=== PATIENT | female | born 1940 | race Caucasian/White ===

== ENCOUNTER 2020-12-01 21:01 | Inpatient (IN) | payer MEDICARE, BC ==
[~2020-12-01] VITALS: Ht 170.2 cm; Wt 104.8 kg
[2020-12-01] MEDS ORDERED: BRIM5DRO3 RIGHTEYE (21:27)
[2020-12-01] MEDS ORDERED: FERR325T27 PO (21:27)
[2020-12-01] MEDS ORDERED: ASCO500C18 PO (21:27)
[2020-12-01] MEDS ORDERED: PANT40TA2 PO (21:27)
[2020-12-01] MEDS ORDERED: CARV3.122 PO (21:27)
[2020-12-01] MEDS ORDERED: ATOR40TA PO (21:27)
[2020-12-01] MEDS ORDERED: TIMO5DRO18 EACHEYE (21:27)
[2020-12-01] MEDS ORDERED: LEVO125T PO (21:27)
[2020-12-01] MEDS ORDERED: VIT1CAPS9 PO (21:27)
[2020-12-01] MEDS ORDERED: MELA3TAB41 PO (21:27)
[2020-12-01] MEDS ORDERED: FURO-151 PO (21:27)
[2020-12-01] MEDS ORDERED: POTA10CA43 PO (21:27)
[2020-12-01] MEDS ORDERED: FLUT16SP16 NS (21:27)
[2020-12-01] MEDS ORDERED: DOCU-141 PO (21:27)
[2020-12-01] MEDS ORDERED: QUET25TA PO (21:27)
[2020-12-01] MEDS ORDERED: HALOPERIDOL LACTATE 5 MG/1 ML VIAL IM ONE (21:30)
[2020-12-01] MEDS ORDERED: HALOPERIDOL LACTATE 5 MG/1 ML VIAL ONE (21:41)
[2020-12-01] MEDS ORDERED: LORAZEPAM 2 MG/1 ML VIAL IM ONE (22:30)
[2020-12-01] MEDS ORDERED: LORAZEPAM 2 MG/1 ML VIAL ONE (22:31)
[2020-12-01 23:13] LABS: BASOPHILS # (AUTO) 0.1 K/uL (0.0-8.0); BASOPHILS % (AUTO) 1.1 % (0.0-2.0); EOSINOPHILS # (AUTO) 0.7 K/uL (0.0-0.7); EOSINOPHILS % (AUTO) 9.3 % (0.0-7.0); HEMATOCRIT 33.9 % (31.2-41.9); LYMPHOCYTES # (AUTO) 1.3 K/uL (20.0-40.0); LYMPHOCYTES % (AUTO) 16.7 % (20.5-51.5); MEAN CORPUSCULAR HEMOGLOBIN 29.6 uug (24.7-32.8); MEAN CORPUSCULAR HGB CONC 32 g/dL (32.3-35.6); MEAN CORPUSCULAR VOLUME 91.3 fL (75.5-95.3); MONOCYTES # (AUTO) 0.8 K/uL (2.0-10.0); MONOCYTES % (AUTO) 10.5 % (0.0-11.0); NEUTROPHILS % (AUTO) 62.4 % (38.5-71.5); PLATELET COUNT (AUTO) 241 K/uL (179-408); RED BLOOD CELL COUNT(AUTO) 3.71 MIL/uL (3.63-4.92)
[2020-12-01 23:19] LABS: CARBON DIOXIDE 27 mmol/L (21-32); CHLORIDE 105 mmol/L (98-107); CREATININE 0.9 mg/dL (0.6-1.3); GLUCOSE 137 mg/dL (74-106); POTASSIUM 4.3 mmol/L (3.5-5.1); UREA NITROGEN, BLOOD 27 mg/dL (7-18)
[2020-12-01 23:21] LABS: ETHANOL < 3 MG/DL (0-0)
[2020-12-01 23:23] LABS: *BILIRUBIN,URIN NEGATIVE (NEGATIVE); *BLOOD, URINE NEGATIVE (NEGATIVE); *CLARITY,URINE CLEAR (CLEAR); *COLOR,URINE YELLOW (YELLOW); *KETONES,URINE NEGATIVE (NEGATIVE); *UROBILINOGEN,URINE 0.2 E.U./dl (NORMAL); LEUKOCYTE ESTERASE ,URINE NEGATIVE (NEGATIVE); NITRITE, URINE NEGATIVE (NEGATIVE); UGLUCOSE NEGATIVE (NEGATIVE)
[2020-12-01 23:28] LABS: *AMPHETAMINE, URINE NEGATIVE (NEGATIVE); *CANNABINOID, URINE NEGATIVE (NEGATIVE); *COCCAINE, URINE NEGATIVE (NEGATIVE); *OPIATE, URINE NEGATIVE (NEGATIVE); *PHENCYCLIDINE SCREEN,URINE NEGATIVE (NEGATIVE)
[2020-12-01 23:35] LABS: ALANINE AMINOTRANSFERASE 13 U/L (14-59); ALKALINE PHOSPHATASE 95 U/L (50-136); ASPARTATE AMINOTRANSFERASE 20 U/L (15-37); BILIRUBIN,DIRECT 0.1 mg/dL (0.0-0.2); BILIRUBIN,TOTAL 0.4 mg/dL (0.2-1.0); CREATINE KINASE, TOTAL 54 U/L (26-192); TOTAL PROTEIN, SERUM 7.7 g/dL (6.4-8.2)
[2020-12-01 23:37] LABS: ACETAMINOPHEN < 2.0 ug/mL (10-30)
[2020-12-01 23:38] LABS: THYROID STIMULATING HORMONE 18.342 mIU/mL (0.358-3.740)
[2020-12-02] MEDS ORDERED: KETAMINE HCL 500 MG/10 ML INJ IV ONE
[2020-12-02] MEDS ORDERED: BENZONATATE 100 MG CAPSULE PO ONE (01:15)
[2020-12-02] MEDS ORDERED: BENZONATATE 100 MG CAPSULE ONE (01:21)
[2020-12-02] MEDS ORDERED: ACETAMINOPHEN ES 500 MG TABLET PO ONE (02:15)
[2020-12-02] MEDS ORDERED: ACETAMINOPHEN ES 500 MG TABLET ONE (02:18)
[2020-12-02 08:00] VITALS: BP 128/50
[2020-12-02] MEDS ORDERED: MAG HYDROX/AL HYDROX/SIMETH 30 ML LIQUID UDC PO PRN (08:15)
[2020-12-02] MEDS ORDERED: ACETAMINOPHEN 325 MG TABLET PO PRN (08:15)
[2020-12-02] MEDS ORDERED: MAGNESIUM HYDROXIDE 30 ML LIQUID UDC PO PRN (08:15)
[2020-12-02] MEDS: FLUTICASONE PROP NASAL SPRAY 16 GM BOTTLE NS SCH (13:22)
[2020-12-02] MEDS: BRIMONIDINE 0.2% OPHT DROP 10 ML BOTTLE RIGHTEYE SCH ×2 (13:23→21:59)
[2020-12-02] MEDS: TIMOLOL MALEATE 0.5% OPHT DROP 5 ML BOTTLE EACHEYE SCH ×2 (13:23→21:13)
[2020-12-02] MEDS ORDERED: BRIMONIDINE-P 0.1% OPHTH DROP 5 ML DROPS RIGHTEYE SCH (14:00)
[2020-12-02 15:41] VITALS: BP 148/65
[2020-12-02] MEDS: QUETIAPINE FUMARATE 25 MG TABLET PO SCH ×2 (17:10→20:38)
[2020-12-02] MEDS: FERROUS SULFATE 325 MG TABEC PO SCH (17:10)
[2020-12-02] MEDS: CARVEDILOL 3.125 MG TABLET PO SCH ×2 (17:11→18:00)
[2020-12-02] MEDS: CLONAZEPAM 0.5 MG TABLET PO PRN (19:59)
[2020-12-02 20:17] VITALS: BP 136/62
[2020-12-02] MEDS: ATORVASTATIN 40 MG TABLET PO SCH (20:38)
[2020-12-02] MEDS: TEMAZEPAM 7.5 MG CAPSULE PO PRN (22:40)
[2020-12-02] MEDS ORDERED: LORAZEPAM 2 MG/1 ML VIAL IM ONE (23:15)
[2020-12-02] MEDS ORDERED: OLANZAPINE 10 MG VIAL IM ONE (23:15)
[2020-12-03] MEDS: PANTOPRAZOLE SODIUM 40 MG TABLET.DR PO SCH (06:45)
[2020-12-03] MEDS: LEVOTHYROXINE SODIUM 125 MCG TABLET PO SCH (06:45)
[2020-12-03] MEDS: BRIMONIDINE 0.2% OPHT DROP 10 ML BOTTLE RIGHTEYE SCH ×3 (06:45→21:01)
[2020-12-03 07:30] VITALS: BP 117/61
[2020-12-03] MEDS: CARVEDILOL 3.125 MG TABLET PO SCH ×2 (08:00→17:12)
[2020-12-03] MEDS: FUROSEMIDE 40 MG TABLET PO SCH (08:50)
[2020-12-03] MEDS: ASCORBIC ACID 500 MG TABLET PO SCH (08:50)
[2020-12-03] MEDS: BETA CAROTENE/VIT C & E/MIN TABLET PO SCH (08:50)
[2020-12-03] MEDS: DOCUSATE SODIUM 100 MG CAPSULE PO SCH (08:50)
[2020-12-03] MEDS: QUETIAPINE FUMARATE 25 MG TABLET PO SCH ×2 (08:50→20:54)
[2020-12-03] MEDS: POTASSIUM CHLORIDE 10 MEQ TAB.PRT.SR PO SCH (08:50)
[2020-12-03] MEDS: FERROUS SULFATE 325 MG TABEC PO SCH ×2 (08:50→16:10)
[2020-12-03] MEDS: Z GUARD REMEDY PASTE 57 GM TUBE TOP SCH ×2 (08:51→20:57)
[2020-12-03] MEDS: FLUTICASONE PROP NASAL SPRAY 16 GM BOTTLE NS SCH (08:55)
[2020-12-03] MEDS: TIMOLOL MALEATE 0.5% OPHT DROP 5 ML BOTTLE EACHEYE SCH ×2 (08:56→20:54)
[2020-12-03] MEDS ORDERED: Medication Not On Formulary EA (Ascorbic Acid (Vitamin C) 500 MG) PO SCH (09:00)
[2020-12-03] MEDS ORDERED: Medication Not On Formulary EA (Vit A/Vit C/Vit E/Zinc/Copper (Preservision Areds Softge PO SCH (09:00)
[2020-12-03] MEDS: MINERAL OIL/PETROLATUM,WHITE 57 GM TUBE TOP SCH (13:20)
[2020-12-03 15:56] VITALS: BP 137/64
[2020-12-03] MEDS: CLOTRIMAZOLE 1% CREAM 30 GM TUBE TOP SCH (16:10)
[2020-12-03] MEDS: ATORVASTATIN 40 MG TABLET PO SCH (20:54)
[2020-12-03 21:16] VITALS: BP 124/67
[2020-12-04] MEDS: BRIMONIDINE 0.2% OPHT DROP 10 ML BOTTLE RIGHTEYE SCH ×3 (06:18→21:02)
[2020-12-04] MEDS: LEVOTHYROXINE SODIUM 125 MCG TABLET PO SCH (06:18)
[2020-12-04] MEDS: PANTOPRAZOLE SODIUM 40 MG TABLET.DR PO SCH (06:18)
[2020-12-04 07:30] VITALS: BP 90/51
[2020-12-04] MEDS: POTASSIUM CHLORIDE 10 MEQ TAB.PRT.SR PO SCH (08:46)
[2020-12-04] MEDS: BETA CAROTENE/VIT C & E/MIN TABLET PO SCH (08:46)
[2020-12-04] MEDS: QUETIAPINE FUMARATE 25 MG TABLET PO SCH ×2 (08:46→20:57)
[2020-12-04] MEDS: DOCUSATE SODIUM 100 MG CAPSULE PO SCH (08:46)
[2020-12-04] MEDS: FERROUS SULFATE 325 MG TABEC PO SCH ×2 (08:46→16:16)
[2020-12-04] MEDS: ASCORBIC ACID 500 MG TABLET PO SCH (08:46)
[2020-12-04] MEDS: MINERAL OIL/PETROLATUM,WHITE 57 GM TUBE TOP SCH (08:47)
[2020-12-04] MEDS: CARVEDILOL 3.125 MG TABLET PO SCH ×2 (08:47→16:16)
[2020-12-04] MEDS: Z GUARD REMEDY PASTE 57 GM TUBE TOP SCH ×2 (08:47→21:00)
[2020-12-04] MEDS: FUROSEMIDE 40 MG TABLET PO SCH (08:47)
[2020-12-04] MEDS: CLOTRIMAZOLE 1% CREAM 30 GM TUBE TOP SCH ×2 (08:47→16:16)
[2020-12-04] MEDS: FLUTICASONE PROP NASAL SPRAY 16 GM BOTTLE NS SCH (08:48)
[2020-12-04] MEDS: TIMOLOL MALEATE 0.5% OPHT DROP 5 ML BOTTLE EACHEYE SCH ×2 (08:48→21:00)
[2020-12-04 16:52] VITALS: BP 90/49
[2020-12-04 20:16] VITALS: BP 92/56
[2020-12-04] MEDS: ATORVASTATIN 40 MG TABLET PO SCH (20:57)
[2020-12-05] MEDS: LEVOTHYROXINE SODIUM 125 MCG TABLET PO SCH (06:01)
[2020-12-05] MEDS: BRIMONIDINE 0.2% OPHT DROP 10 ML BOTTLE RIGHTEYE SCH ×3 (06:01→21:51)
[2020-12-05] MEDS: PANTOPRAZOLE SODIUM 40 MG TABLET.DR PO SCH (06:01)
[2020-12-05 07:30] VITALS: BP 121/67
[2020-12-05] MEDS: CARVEDILOL 3.125 MG TABLET PO SCH ×2 (08:05→17:02)
[2020-12-05] MEDS: BETA CAROTENE/VIT C & E/MIN TABLET PO SCH (08:06)
[2020-12-05] MEDS: DOCUSATE SODIUM 100 MG CAPSULE PO SCH (08:06)
[2020-12-05] MEDS: FLUTICASONE PROP NASAL SPRAY 16 GM BOTTLE NS SCH (08:06)
[2020-12-05] MEDS: FUROSEMIDE 40 MG TABLET PO SCH (08:06)
[2020-12-05] MEDS: TIMOLOL MALEATE 0.5% OPHT DROP 5 ML BOTTLE EACHEYE SCH ×2 (08:06→20:53)
[2020-12-05] MEDS: POTASSIUM CHLORIDE 10 MEQ TAB.PRT.SR PO SCH (08:06)
[2020-12-05] MEDS: FERROUS SULFATE 325 MG TABEC PO SCH ×2 (08:06→16:48)
[2020-12-05] MEDS: QUETIAPINE FUMARATE 25 MG TABLET PO SCH ×2 (08:07→20:52)
[2020-12-05] MEDS: ASCORBIC ACID 500 MG TABLET PO SCH (08:07)
[2020-12-05] MEDS: Z GUARD REMEDY PASTE 57 GM TUBE TOP SCH ×2 (08:08→20:53)
[2020-12-05] MEDS: MINERAL OIL/PETROLATUM,WHITE 57 GM TUBE TOP SCH (08:08)
[2020-12-05] MEDS: CLOTRIMAZOLE 1% CREAM 30 GM TUBE TOP SCH ×2 (08:08→17:01)
[2020-12-05 15:57] VITALS: BP_SYST 127; BP_SYST 135; BP_DIAS 72; BP_DIAS 73
[2020-12-05] MEDS: ENSURE ENLIVE (VAN) 240 ML LIQUID PO SCH (17:00)
[2020-12-05 20:17] VITALS: BP 103/50
[2020-12-05] MEDS: ATORVASTATIN 40 MG TABLET PO SCH (20:52)
[2020-12-05] MEDS: TEMAZEPAM 7.5 MG CAPSULE PO PRN (21:50)
[2020-12-06] MEDS: PANTOPRAZOLE SODIUM 40 MG TABLET.DR PO SCH (06:05)
[2020-12-06] MEDS: LEVOTHYROXINE SODIUM 125 MCG TABLET PO SCH (06:05)
[2020-12-06] MEDS: BRIMONIDINE 0.2% OPHT DROP 10 ML BOTTLE RIGHTEYE SCH ×3 (06:05→20:26)
[2020-12-06 07:30] VITALS: BP 97/42
[2020-12-06] MEDS: CARVEDILOL 3.125 MG TABLET PO SCH ×2 (08:00→17:04)
[2020-12-06] MEDS: DOCUSATE SODIUM 100 MG CAPSULE PO SCH (09:20)
[2020-12-06] MEDS: BETA CAROTENE/VIT C & E/MIN TABLET PO SCH (09:20)
[2020-12-06] MEDS: FUROSEMIDE 40 MG TABLET PO SCH (09:20)
[2020-12-06] MEDS: ASCORBIC ACID 500 MG TABLET PO SCH (09:20)
[2020-12-06] MEDS: ASPIRIN 81 MG TAB.CHEW PO SCH (09:20)
[2020-12-06] MEDS: QUETIAPINE FUMARATE 25 MG TABLET PO SCH ×2 (09:20→20:26)
[2020-12-06] MEDS: POTASSIUM CHLORIDE 10 MEQ TAB.PRT.SR PO SCH (09:20)
[2020-12-06] MEDS: CLONAZEPAM 0.5 MG TABLET PO PRN (09:20)
[2020-12-06] MEDS: FERROUS SULFATE 325 MG TABEC PO SCH ×2 (09:20→16:52)
[2020-12-06] MEDS: TIMOLOL MALEATE 0.5% OPHT DROP 5 ML BOTTLE EACHEYE SCH ×2 (09:22→20:27)
[2020-12-06] MEDS: FLUTICASONE PROP NASAL SPRAY 16 GM BOTTLE NS SCH (09:22)
[2020-12-06] MEDS: ENSURE ENLIVE (VAN) 240 ML LIQUID PO SCH ×2 (09:23→16:54)
[2020-12-06] MEDS: MINERAL OIL/PETROLATUM,WHITE 57 GM TUBE TOP SCH (09:24)
[2020-12-06] MEDS: CLOTRIMAZOLE 1% CREAM 30 GM TUBE TOP SCH ×2 (09:24→16:53)
[2020-12-06] MEDS: Z GUARD REMEDY PASTE 57 GM TUBE TOP SCH ×2 (09:24→20:26)
[2020-12-06 15:01] VITALS: BP 121/61
[2020-12-06 20:14] VITALS: BP 112/60
[2020-12-06] MEDS: ATORVASTATIN 40 MG TABLET PO SCH (20:27)
[2020-12-06] MEDS: HEPARIN SODIUM,PORCINE 5,000 UNITS/ML VIAL SQ SCH (20:28)
[2020-12-07] MEDS: TEMAZEPAM 7.5 MG CAPSULE PO PRN ×2 (00:27→23:11)
[2020-12-07] MEDS: CLONAZEPAM 0.5 MG TABLET PO PRN ×3 (01:27→20:15)
[2020-12-07] MEDS: LEVOTHYROXINE SODIUM 137 MCG TABLET PO SCH (06:17)
[2020-12-07] MEDS: PANTOPRAZOLE SODIUM 40 MG TABLET.DR PO SCH (06:17)
[2020-12-07] MEDS: BRIMONIDINE 0.2% OPHT DROP 10 ML BOTTLE RIGHTEYE SCH ×3 (06:17→20:18)
[2020-12-07 07:30] VITALS: BP 126/61
[2020-12-07] MEDS: CARVEDILOL 3.125 MG TABLET PO SCH ×2 (08:48→17:32)
[2020-12-07] MEDS: FERROUS SULFATE 325 MG TABEC PO SCH ×2 (08:48→16:26)
[2020-12-07] MEDS: ASCORBIC ACID 500 MG TABLET PO SCH (08:48)
[2020-12-07] MEDS: QUETIAPINE FUMARATE 25 MG TABLET PO SCH ×2 (08:48→20:15)
[2020-12-07] MEDS: BETA CAROTENE/VIT C & E/MIN TABLET PO SCH (08:48)
[2020-12-07] MEDS: DOCUSATE SODIUM 100 MG CAPSULE PO SCH (08:48)
[2020-12-07] MEDS: ASPIRIN 81 MG TAB.CHEW PO SCH (08:48)
[2020-12-07] MEDS: POTASSIUM CHLORIDE 10 MEQ TAB.PRT.SR PO SCH (08:48)
[2020-12-07] MEDS: HEPARIN SODIUM,PORCINE 5,000 UNITS/ML VIAL SQ SCH ×2 (08:49→20:16)
[2020-12-07] MEDS: TIMOLOL MALEATE 0.5% OPHT DROP 5 ML BOTTLE EACHEYE SCH ×2 (08:50→20:19)
[2020-12-07] MEDS: ENSURE ENLIVE (VAN) 240 ML LIQUID PO SCH ×2 (08:50→16:27)
[2020-12-07] MEDS: FLUTICASONE PROP NASAL SPRAY 16 GM BOTTLE NS SCH (08:51)
[2020-12-07] MEDS: FUROSEMIDE 40 MG TABLET PO SCH (08:54)
[2020-12-07] MEDS: MINERAL OIL/PETROLATUM,WHITE 57 GM TUBE TOP SCH (08:54)
[2020-12-07] MEDS: Z GUARD REMEDY PASTE 57 GM TUBE TOP SCH ×2 (08:55→20:19)
[2020-12-07] MEDS: CLOTRIMAZOLE 1% CREAM 30 GM TUBE TOP SCH ×2 (08:55→16:27)
[2020-12-07 15:30] VITALS: BP 129/71
[2020-12-07 20:05] VITALS: BP 136/74
[2020-12-07] MEDS: ATORVASTATIN 40 MG TABLET PO SCH (20:15)
[2020-12-08] MEDS: LEVOTHYROXINE SODIUM 137 MCG TABLET PO SCH (06:09)
[2020-12-08] MEDS: BRIMONIDINE 0.2% OPHT DROP 10 ML BOTTLE RIGHTEYE SCH ×3 (06:09→21:39)
[2020-12-08] MEDS: PANTOPRAZOLE SODIUM 40 MG TABLET.DR PO SCH (06:09)
[2020-12-08 07:30] VITALS: BP 133/69
[2020-12-08] MEDS: ASPIRIN 81 MG TAB.CHEW PO SCH (08:56)
[2020-12-08] MEDS: BETA CAROTENE/VIT C & E/MIN TABLET PO SCH (08:57)
[2020-12-08] MEDS: FUROSEMIDE 40 MG TABLET PO SCH (08:57)
[2020-12-08] MEDS: DOCUSATE SODIUM 100 MG CAPSULE PO SCH (08:57)
[2020-12-08] MEDS: POTASSIUM CHLORIDE 10 MEQ TAB.PRT.SR PO SCH (08:57)
[2020-12-08] MEDS: FERROUS SULFATE 325 MG TABEC PO SCH ×2 (08:57→17:25)
[2020-12-08] MEDS: ASCORBIC ACID 500 MG TABLET PO SCH (08:57)
[2020-12-08] MEDS: QUETIAPINE FUMARATE 25 MG TABLET PO SCH ×2 (08:57→20:44)
[2020-12-08] MEDS: CARVEDILOL 3.125 MG TABLET PO SCH ×2 (08:58→17:24)
[2020-12-08] MEDS: ENSURE ENLIVE (VAN) 240 ML LIQUID PO SCH ×2 (08:59→17:25)
[2020-12-08] MEDS: HEPARIN SODIUM,PORCINE 5,000 UNITS/ML VIAL SQ SCH ×2 (08:59→20:48)
[2020-12-08] MEDS: FLUTICASONE PROP NASAL SPRAY 16 GM BOTTLE NS SCH (09:00)
[2020-12-08] MEDS: TIMOLOL MALEATE 0.5% OPHT DROP 5 ML BOTTLE EACHEYE SCH ×2 (09:00→20:44)
[2020-12-08] MEDS: MINERAL OIL/PETROLATUM,WHITE 57 GM TUBE TOP SCH (09:01)
[2020-12-08] MEDS: CLOTRIMAZOLE 1% CREAM 30 GM TUBE TOP SCH ×2 (09:01→17:25)
[2020-12-08] MEDS: Z GUARD REMEDY PASTE 57 GM TUBE TOP SCH ×2 (09:25→20:44)
[2020-12-08 16:00] VITALS: BP 140/70
[2020-12-08 20:22] VITALS: BP 136/68
[2020-12-08] MEDS: ATORVASTATIN 40 MG TABLET PO SCH (20:44)
[2020-12-08] MEDS: TEMAZEPAM 7.5 MG CAPSULE PO PRN (22:38)
[2020-12-09] MEDS: CLONAZEPAM 0.5 MG TABLET PO PRN ×2 (02:16→19:54)
[2020-12-09] MEDS: BRIMONIDINE 0.2% OPHT DROP 10 ML BOTTLE RIGHTEYE SCH ×3 (05:52→21:40)
[2020-12-09] MEDS: LEVOTHYROXINE SODIUM 137 MCG TABLET PO SCH (06:01)
[2020-12-09] MEDS: PANTOPRAZOLE SODIUM 40 MG TABLET.DR PO SCH (06:01)
[2020-12-09 07:30] VITALS: BP 122/54
[2020-12-09] MEDS: DOCUSATE SODIUM 100 MG CAPSULE PO SCH (08:38)
[2020-12-09] MEDS: QUETIAPINE FUMARATE 25 MG TABLET PO SCH ×2 (08:38→17:18)
[2020-12-09] MEDS: ASCORBIC ACID 500 MG TABLET PO SCH (08:38)
[2020-12-09] MEDS: ASPIRIN 81 MG TAB.CHEW PO SCH (08:38)
[2020-12-09] MEDS: POTASSIUM CHLORIDE 10 MEQ TAB.PRT.SR PO SCH (08:38)
[2020-12-09] MEDS: FERROUS SULFATE 325 MG TABEC PO SCH ×2 (08:38→17:18)
[2020-12-09] MEDS: BETA CAROTENE/VIT C & E/MIN TABLET PO SCH (08:38)
[2020-12-09] MEDS: CARVEDILOL 3.125 MG TABLET PO SCH ×2 (08:39→17:17)
[2020-12-09] MEDS: ENSURE ENLIVE (VAN) 240 ML LIQUID PO SCH ×2 (08:39→17:18)
[2020-12-09] MEDS: FUROSEMIDE 40 MG TABLET PO SCH (08:39)
[2020-12-09] MEDS: FLUTICASONE PROP NASAL SPRAY 16 GM BOTTLE NS SCH (08:40)
[2020-12-09] MEDS: TIMOLOL MALEATE 0.5% OPHT DROP 5 ML BOTTLE EACHEYE SCH ×2 (08:40→20:58)
[2020-12-09] MEDS: MINERAL OIL/PETROLATUM,WHITE 57 GM TUBE TOP SCH (08:41)
[2020-12-09] MEDS: CLOTRIMAZOLE 1% CREAM 30 GM TUBE TOP SCH ×2 (08:41→17:19)
[2020-12-09] MEDS: Z GUARD REMEDY PASTE 57 GM TUBE TOP SCH ×2 (08:42→21:00)
[2020-12-09] MEDS: HEPARIN SODIUM,PORCINE 5,000 UNITS/ML VIAL SQ SCH ×2 (08:43→20:59)
[2020-12-09 20:43] VITALS: BP 114/50
[2020-12-09] MEDS: ATORVASTATIN 40 MG TABLET PO SCH (20:58)
[2020-12-10] MEDS: TEMAZEPAM 7.5 MG CAPSULE PO PRN ×2 (00:01→22:59)
[2020-12-10] MEDS: LEVOTHYROXINE SODIUM 137 MCG TABLET PO SCH (06:45)
[2020-12-10] MEDS: PANTOPRAZOLE SODIUM 40 MG TABLET.DR PO SCH (06:45)
[2020-12-10] MEDS: BRIMONIDINE 0.2% OPHT DROP 10 ML BOTTLE RIGHTEYE SCH ×3 (06:45→21:12)
[2020-12-10 07:30] VITALS: BP 141/68
[2020-12-10] MEDS: FLUTICASONE PROP NASAL SPRAY 16 GM BOTTLE NS SCH (09:00)
[2020-12-10] MEDS: ASPIRIN 81 MG TAB.CHEW PO SCH (09:06)
[2020-12-10] MEDS: BETA CAROTENE/VIT C & E/MIN TABLET PO SCH (09:06)
[2020-12-10] MEDS: CARVEDILOL 3.125 MG TABLET PO SCH ×2 (09:06→17:07)
[2020-12-10] MEDS: DOCUSATE SODIUM 100 MG CAPSULE PO SCH (09:06)
[2020-12-10] MEDS: ASCORBIC ACID 500 MG TABLET PO SCH (09:06)
[2020-12-10] MEDS: FERROUS SULFATE 325 MG TABEC PO SCH ×2 (09:07→17:05)
[2020-12-10] MEDS: FUROSEMIDE 40 MG TABLET PO SCH (09:07)
[2020-12-10] MEDS: POTASSIUM CHLORIDE 10 MEQ TAB.PRT.SR PO SCH (09:07)
[2020-12-10] MEDS: QUETIAPINE FUMARATE 25 MG TABLET PO SCH ×3 (09:09→17:06)
[2020-12-10] MEDS: HEPARIN SODIUM,PORCINE 5,000 UNITS/ML VIAL SQ SCH ×2 (09:09→20:08)
[2020-12-10] MEDS: ENSURE ENLIVE (VAN) 240 ML LIQUID PO SCH ×2 (09:10→17:07)
[2020-12-10] MEDS: MINERAL OIL/PETROLATUM,WHITE 57 GM TUBE TOP SCH (09:11)
[2020-12-10] MEDS: CLOTRIMAZOLE 1% CREAM 30 GM TUBE TOP SCH ×2 (09:12→17:15)
[2020-12-10] MEDS: TIMOLOL MALEATE 0.5% OPHT DROP 5 ML BOTTLE EACHEYE SCH ×2 (09:13→20:10)
[2020-12-10] MEDS: Z GUARD REMEDY PASTE 57 GM TUBE TOP SCH ×2 (09:14→20:10)
[2020-12-10 17:02] VITALS: BP 122/59
[2020-12-10] MEDS: MEMANTINE HCL 5 MG TABLET PO SCH (20:06)
[2020-12-10] MEDS: CLONAZEPAM 0.5 MG TABLET PO PRN (20:07)
[2020-12-10] MEDS: ATORVASTATIN 40 MG TABLET PO SCH (20:07)
[2020-12-10 20:32] VITALS: BP 147/60
[2020-12-11] MEDS: LEVOTHYROXINE SODIUM 137 MCG TABLET PO SCH (06:01)
[2020-12-11] MEDS: PANTOPRAZOLE SODIUM 40 MG TABLET.DR PO SCH (06:01)
[2020-12-11] MEDS: BRIMONIDINE 0.2% OPHT DROP 10 ML BOTTLE RIGHTEYE SCH ×3 (06:01→22:26)
[2020-12-11 07:30] VITALS: BP 103/59
[2020-12-11] MEDS: ENSURE ENLIVE (VAN) 240 ML LIQUID PO SCH ×2 (08:00→17:00)
[2020-12-11] MEDS: POTASSIUM CHLORIDE 10 MEQ TAB.PRT.SR PO SCH (09:43)
[2020-12-11] MEDS: ASCORBIC ACID 500 MG TABLET PO SCH (09:43)
[2020-12-11] MEDS: QUETIAPINE FUMARATE 25 MG TABLET PO SCH ×3 (09:43→18:04)
[2020-12-11] MEDS: ASPIRIN 81 MG TAB.CHEW PO SCH (09:43)
[2020-12-11] MEDS: BETA CAROTENE/VIT C & E/MIN TABLET PO SCH (09:43)
[2020-12-11] MEDS: MINERAL OIL/PETROLATUM,WHITE 57 GM TUBE TOP SCH (09:46)
[2020-12-11] MEDS: CLOTRIMAZOLE 1% CREAM 30 GM TUBE TOP SCH ×2 (09:47→18:07)
[2020-12-11] MEDS: Z GUARD REMEDY PASTE 57 GM TUBE TOP SCH ×2 (09:47→20:42)
[2020-12-11] MEDS: HEPARIN SODIUM,PORCINE 5,000 UNITS/ML VIAL SQ SCH ×2 (09:55→20:40)
[2020-12-11] MEDS: TIMOLOL MALEATE 0.5% OPHT DROP 5 ML BOTTLE EACHEYE SCH ×2 (09:57→20:43)
[2020-12-11] MEDS: CARVEDILOL 3.125 MG TABLET PO SCH ×2 (09:58→18:07)
[2020-12-11] MEDS: FERROUS SULFATE 325 MG TABEC PO SCH ×2 (09:59→18:04)
[2020-12-11] MEDS: FLUTICASONE PROP NASAL SPRAY 16 GM BOTTLE NS SCH (09:59)
[2020-12-11] MEDS: DOCUSATE SODIUM 100 MG CAPSULE PO SCH (09:59)
[2020-12-11] MEDS: FUROSEMIDE 40 MG TABLET PO SCH (09:59)
[2020-12-11] MEDS: MEMANTINE HCL 5 MG TABLET PO SCH ×2 (10:04→20:39)
[2020-12-11 16:00] VITALS: BP 144/81
[2020-12-11 20:30] VITALS: BP 158/71
[2020-12-11] MEDS: ATORVASTATIN 40 MG TABLET PO SCH (20:39)
[2020-12-11 21:00] VITALS: BP 136/59
[2020-12-12] MEDS: BRIMONIDINE 0.2% OPHT DROP 10 ML BOTTLE RIGHTEYE SCH ×3 (06:18→21:03)
[2020-12-12] MEDS: PANTOPRAZOLE SODIUM 40 MG TABLET.DR PO SCH (06:18)
[2020-12-12] MEDS: LEVOTHYROXINE SODIUM 137 MCG TABLET PO SCH (06:18)
[2020-12-12 07:30] VITALS: BP 133/61
[2020-12-12] MEDS: ENSURE ENLIVE (VAN) 240 ML LIQUID PO SCH ×2 (08:00→17:27)
[2020-12-12] MEDS: FLUTICASONE PROP NASAL SPRAY 16 GM BOTTLE NS SCH (09:00)
[2020-12-12] MEDS: ASCORBIC ACID 500 MG TABLET PO SCH (09:42)
[2020-12-12] MEDS: QUETIAPINE FUMARATE 25 MG TABLET PO SCH ×3 (09:42→17:25)
[2020-12-12] MEDS: FUROSEMIDE 40 MG TABLET PO SCH (09:42)
[2020-12-12] MEDS: FERROUS SULFATE 325 MG TABEC PO SCH ×2 (09:42→17:24)
[2020-12-12] MEDS: BETA CAROTENE/VIT C & E/MIN TABLET PO SCH (09:42)
[2020-12-12] MEDS: ASPIRIN 81 MG TAB.CHEW PO SCH (09:42)
[2020-12-12] MEDS: DOCUSATE SODIUM 100 MG CAPSULE PO SCH (09:43)
[2020-12-12] MEDS: MEMANTINE HCL 5 MG TABLET PO SCH ×2 (09:43→21:03)
[2020-12-12] MEDS: CARVEDILOL 3.125 MG TABLET PO SCH ×2 (09:43→17:26)
[2020-12-12] MEDS: POTASSIUM CHLORIDE 10 MEQ TAB.PRT.SR PO SCH (09:43)
[2020-12-12] MEDS: TIMOLOL MALEATE 0.5% OPHT DROP 5 ML BOTTLE EACHEYE SCH ×2 (09:44→21:03)
[2020-12-12] MEDS: Z GUARD REMEDY PASTE 57 GM TUBE TOP SCH ×2 (09:45→21:05)
[2020-12-12] MEDS: CLOTRIMAZOLE 1% CREAM 30 GM TUBE TOP SCH ×2 (09:46→17:25)
[2020-12-12] MEDS: MINERAL OIL/PETROLATUM,WHITE 57 GM TUBE TOP SCH (09:46)
[2020-12-12] MEDS: HEPARIN SODIUM,PORCINE 5,000 UNITS/ML VIAL SQ SCH ×2 (09:50→21:04)
[2020-12-12 16:00] VITALS: BP 100/63
[2020-12-12 19:55] VITALS: BP 130/61
[2020-12-12] MEDS: ATORVASTATIN 40 MG TABLET PO SCH (21:03)
[2020-12-12] MEDS: CLONAZEPAM 0.5 MG TABLET PO PRN (21:05)
[2020-12-13] MEDS: TEMAZEPAM 7.5 MG CAPSULE PO PRN (00:59)
[2020-12-13] MEDS: TIMOLOL MALEATE 0.5% OPHT DROP 5 ML BOTTLE EACHEYE SCH ×2 (05:45→20:44)
[2020-12-13] MEDS: BRIMONIDINE 0.2% OPHT DROP 10 ML BOTTLE RIGHTEYE SCH ×3 (05:46→21:20)
[2020-12-13] MEDS: LEVOTHYROXINE SODIUM 137 MCG TABLET PO SCH (05:46)
[2020-12-13] MEDS: PANTOPRAZOLE SODIUM 40 MG TABLET.DR PO SCH (05:46)
[2020-12-13 07:30] VITALS: BP 115/68
[2020-12-13] MEDS: ENSURE ENLIVE (VAN) 240 ML LIQUID PO SCH ×2 (08:00→17:12)
[2020-12-13 08:15] LABS: BASOPHILS # (AUTO) 0.1 K/uL (0.0-8.0); BASOPHILS % (AUTO) 0.7 % (0.0-2.0); EOSINOPHILS # (AUTO) 0.8 K/uL (0.0-0.7); EOSINOPHILS % (AUTO) 11.4 % (0.0-7.0); HEMATOCRIT 38.6 % (31.2-41.9); HEMOGLOBIN 12.4 g/dL (10.9-14.3); LYMPHOCYTES # (AUTO) 1.5 K/uL (20.0-40.0); LYMPHOCYTES % (AUTO) 19.8 % (20.5-51.5); MEAN CORPUSCULAR HEMOGLOBIN 29.3 uug (24.7-32.8); MEAN CORPUSCULAR HGB CONC 32 g/dL (32.3-35.6); MEAN CORPUSCULAR VOLUME 90.9 fL (75.5-95.3); MONOCYTES # (AUTO) 0.8 K/uL (2.0-10.0); MONOCYTES % (AUTO) 10.4 % (0.0-11.0); NEUTROPHILS # (AUTO) 4.3 K/uL (1.8-8.9); NEUTROPHILS % (AUTO) 57.7 % (38.5-71.5); PLATELET COUNT (AUTO) 251 K/uL (179-408); RED BLOOD CELL COUNT(AUTO) 4.25 MIL/uL (3.63-4.92); WHITE BLOOD COUNT (AUTO) 7.4 K/uL (3.8-11.8)
[2020-12-13 08:28] LABS: THYROID STIMULATING HORMONE 19.374 mIU/mL (0.358-3.740)
[2020-12-13 08:44] LABS: BILIRUBIN,TOTAL 0.6 mg/dL (0.2-1.0); CREATININE 1.2 mg/dL (0.6-1.3); MAGNESIUM 2.3 mg/dL (1.8-2.4); PHOSPHOROUS 4.1 mg/dL (2.5-4.9); POTASSIUM 4.2 mmol/L (3.5-5.1); TOTAL PROTEIN, SERUM 7.2 g/dL (6.4-8.2)
[2020-12-13] MEDS: FLUTICASONE PROP NASAL SPRAY 16 GM BOTTLE NS SCH (09:00)
[2020-12-13] MEDS: FERROUS SULFATE 325 MG TABEC PO SCH ×2 (09:07→17:12)
[2020-12-13] MEDS: QUETIAPINE FUMARATE 25 MG TABLET PO SCH ×3 (09:07→17:12)
[2020-12-13] MEDS: ASPIRIN 81 MG TAB.CHEW PO SCH (09:08)
[2020-12-13] MEDS: DOCUSATE SODIUM 100 MG CAPSULE PO SCH (09:08)
[2020-12-13] MEDS: ASCORBIC ACID 500 MG TABLET PO SCH (09:08)
[2020-12-13] MEDS: MEMANTINE HCL 5 MG TABLET PO SCH ×2 (09:08→20:44)
[2020-12-13] MEDS: FUROSEMIDE 40 MG TABLET PO SCH (09:08)
[2020-12-13] MEDS: BETA CAROTENE/VIT C & E/MIN TABLET PO SCH (09:08)
[2020-12-13] MEDS: POTASSIUM CHLORIDE 10 MEQ TAB.PRT.SR PO SCH (09:09)
[2020-12-13] MEDS: CARVEDILOL 3.125 MG TABLET PO SCH ×2 (09:09→17:13)
[2020-12-13] MEDS: HEPARIN SODIUM,PORCINE 5,000 UNITS/ML VIAL SQ SCH ×2 (09:24→20:51)
[2020-12-13] MEDS: CLOTRIMAZOLE 1% CREAM 30 GM TUBE TOP SCH ×2 (09:24→17:13)
[2020-12-13] MEDS: MINERAL OIL/PETROLATUM,WHITE 57 GM TUBE TOP SCH (09:25)
[2020-12-13] MEDS: Z GUARD REMEDY PASTE 57 GM TUBE TOP SCH ×2 (09:25→20:51)
[2020-12-13 19:33] VITALS: BP 107/54
[2020-12-13] MEDS: ATORVASTATIN 40 MG TABLET PO SCH (20:44)
[2020-12-14 04:00] VITALS: BP 103/58
[2020-12-14] MEDS: BRIMONIDINE 0.2% OPHT DROP 10 ML BOTTLE RIGHTEYE SCH ×3 (05:51→22:03)
[2020-12-14] MEDS: PANTOPRAZOLE SODIUM 40 MG TABLET.DR PO SCH (06:11)
[2020-12-14] MEDS: LEVOTHYROXINE SODIUM 137 MCG TABLET PO SCH (06:12)
[2020-12-14] MEDS: BETA CAROTENE/VIT C & E/MIN TABLET PO SCH (08:25)
[2020-12-14] MEDS: QUETIAPINE FUMARATE 25 MG TABLET PO SCH ×3 (08:25→16:58)
[2020-12-14] MEDS: FERROUS SULFATE 325 MG TABEC PO SCH ×2 (08:26→16:58)
[2020-12-14] MEDS: MEMANTINE HCL 5 MG TABLET PO SCH ×2 (08:26→20:27)
[2020-12-14] MEDS: FUROSEMIDE 40 MG TABLET PO SCH (08:26)
[2020-12-14] MEDS: POTASSIUM CHLORIDE 10 MEQ TAB.PRT.SR PO SCH (08:26)
[2020-12-14] MEDS: ASPIRIN 81 MG TAB.CHEW PO SCH (08:26)
[2020-12-14] MEDS: ASCORBIC ACID 500 MG TABLET PO SCH (08:26)
[2020-12-14] MEDS: ENSURE ENLIVE (VAN) 240 ML LIQUID PO SCH ×2 (08:27→16:59)
[2020-12-14] MEDS: DOCUSATE SODIUM 100 MG CAPSULE PO SCH (08:27)
[2020-12-14 08:30] VITALS: BP 111/61
[2020-12-14] MEDS: CARVEDILOL 3.125 MG TABLET PO SCH ×2 (08:38→17:06)
[2020-12-14] MEDS: CLOTRIMAZOLE 1% CREAM 30 GM TUBE TOP SCH ×2 (09:20→16:58)
[2020-12-14] MEDS: Z GUARD REMEDY PASTE 57 GM TUBE TOP SCH ×2 (09:20→20:27)
[2020-12-14] MEDS: FLUTICASONE PROP NASAL SPRAY 16 GM BOTTLE NS SCH (09:21)
[2020-12-14] MEDS: TIMOLOL MALEATE 0.5% OPHT DROP 5 ML BOTTLE EACHEYE SCH ×2 (09:22→20:28)
[2020-12-14] MEDS: MINERAL OIL/PETROLATUM,WHITE 57 GM TUBE TOP SCH (09:23)
[2020-12-14 16:00] VITALS: BP 125/55
[2020-12-14] MEDS: ATORVASTATIN 40 MG TABLET PO SCH (20:27)
[2020-12-14 21:57] VITALS: BP 98/58
[2020-12-15] MEDS: TEMAZEPAM 7.5 MG CAPSULE PO PRN (00:37)
[2020-12-15] MEDS: LEVOTHYROXINE SODIUM 150 MCG TABLET PO SCH (06:00)
[2020-12-15] MEDS: PANTOPRAZOLE SODIUM 40 MG TABLET.DR PO SCH (06:00)
[2020-12-15] MEDS: BRIMONIDINE 0.2% OPHT DROP 10 ML BOTTLE RIGHTEYE SCH ×3 (06:01→21:42)
[2020-12-15 07:31] LABS: CREATININE 1.2 mg/dL (0.6-1.3); POTASSIUM 4.4 mmol/L (3.5-5.1)
[2020-12-15 08:38] VITALS: BP 123/64
[2020-12-15] MEDS: ASPIRIN 81 MG TAB.CHEW PO SCH (08:58)
[2020-12-15] MEDS: MEMANTINE HCL 5 MG TABLET PO SCH ×2 (08:59→21:37)
[2020-12-15] MEDS: BETA CAROTENE/VIT C & E/MIN TABLET PO SCH (08:59)
[2020-12-15] MEDS: FERROUS SULFATE 325 MG TABEC PO SCH ×2 (08:59→16:29)
[2020-12-15] MEDS: ASCORBIC ACID 500 MG TABLET PO SCH (08:59)
[2020-12-15] MEDS: QUETIAPINE FUMARATE 25 MG TABLET PO SCH ×3 (08:59→16:29)
[2020-12-15] MEDS: CARVEDILOL 3.125 MG TABLET PO SCH ×2 (08:59→17:28)
[2020-12-15] MEDS: POTASSIUM CHLORIDE 10 MEQ TAB.PRT.SR PO SCH (08:59)
[2020-12-15] MEDS: FUROSEMIDE 20 MG TABLET PO SCH (08:59)
[2020-12-15] MEDS: CLOTRIMAZOLE 1% CREAM 30 GM TUBE TOP SCH ×2 (09:00→16:30)
[2020-12-15] MEDS: DOCUSATE SODIUM 100 MG CAPSULE PO SCH (09:00)
[2020-12-15] MEDS: Z GUARD REMEDY PASTE 57 GM TUBE TOP SCH ×2 (09:00→21:46)
[2020-12-15] MEDS: FLUTICASONE PROP NASAL SPRAY 16 GM BOTTLE NS SCH (09:00)
[2020-12-15] MEDS: MINERAL OIL/PETROLATUM,WHITE 57 GM TUBE TOP SCH (09:01)
[2020-12-15] MEDS: TIMOLOL MALEATE 0.5% OPHT DROP 5 ML BOTTLE EACHEYE SCH ×2 (09:02→21:36)
[2020-12-15] MEDS: ENSURE ENLIVE (VAN) 240 ML LIQUID PO SCH ×2 (09:02→16:30)
[2020-12-15 16:37] VITALS: BP 111/55
[2020-12-15 20:00] VITALS: BP 121/60
[2020-12-15] MEDS: ATORVASTATIN 40 MG TABLET PO SCH (21:37)
[2020-12-16 04:00] VITALS: BP 126/64
[2020-12-16] MEDS: BRIMONIDINE 0.2% OPHT DROP 10 ML BOTTLE RIGHTEYE SCH ×3 (06:00→23:37)
[2020-12-16] MEDS: LEVOTHYROXINE SODIUM 150 MCG TABLET PO SCH (06:16)
[2020-12-16] MEDS: PANTOPRAZOLE SODIUM 40 MG TABLET.DR PO SCH (06:22)
[2020-12-16 08:00] VITALS: BP 118/57
[2020-12-16] MEDS: QUETIAPINE FUMARATE 25 MG TABLET PO SCH ×3 (08:39→17:10)
[2020-12-16] MEDS: BETA CAROTENE/VIT C & E/MIN TABLET PO SCH (08:39)
[2020-12-16] MEDS: POTASSIUM CHLORIDE 10 MEQ TAB.PRT.SR PO SCH (08:39)
[2020-12-16] MEDS: FUROSEMIDE 20 MG TABLET PO SCH (08:39)
[2020-12-16] MEDS: ASPIRIN 81 MG TAB.CHEW PO SCH (08:39)
[2020-12-16] MEDS: ASCORBIC ACID 500 MG TABLET PO SCH (08:39)
[2020-12-16] MEDS: FERROUS SULFATE 325 MG TABEC PO SCH ×2 (08:39→17:10)
[2020-12-16] MEDS: TIMOLOL MALEATE 0.5% OPHT DROP 5 ML BOTTLE EACHEYE SCH ×2 (08:40→20:45)
[2020-12-16] MEDS: CARVEDILOL 3.125 MG TABLET PO SCH ×2 (08:40→17:39)
[2020-12-16] MEDS: FLUTICASONE PROP NASAL SPRAY 16 GM BOTTLE NS SCH (08:41)
[2020-12-16] MEDS: DOCUSATE SODIUM 100 MG CAPSULE PO SCH (08:41)
[2020-12-16] MEDS: ENSURE ENLIVE (VAN) 240 ML LIQUID PO SCH ×2 (08:42→17:40)
[2020-12-16] MEDS: MINERAL OIL/PETROLATUM,WHITE 57 GM TUBE TOP SCH (08:45)
[2020-12-16] MEDS: Z GUARD REMEDY PASTE 57 GM TUBE TOP SCH ×2 (08:46→20:45)
[2020-12-16] MEDS: CLOTRIMAZOLE 1% CREAM 30 GM TUBE TOP SCH ×2 (08:46→17:10)
[2020-12-16] MEDS: MEMANTINE HCL 5 MG TABLET PO SCH ×2 (08:48→20:44)
[2020-12-16 15:27] VITALS: BP 100/51
[2020-12-16 19:33] VITALS: BP 105/56
[2020-12-17] MEDS: TEMAZEPAM 7.5 MG CAPSULE PO PRN (02:21)
[2020-12-17 04:00] VITALS: BP 122/66
[2020-12-17] MEDS: BRIMONIDINE 0.2% OPHT DROP 10 ML BOTTLE RIGHTEYE SCH ×2 (06:09→13:48)
[2020-12-17] MEDS: PANTOPRAZOLE SODIUM 40 MG TABLET.DR PO SCH (06:26)
[2020-12-17] MEDS: LEVOTHYROXINE SODIUM 150 MCG TABLET PO SCH (06:26)
[2020-12-17 08:00] VITALS: BP 105/62
[2020-12-17] MEDS: BETA CAROTENE/VIT C & E/MIN TABLET PO SCH (08:20)
[2020-12-17] MEDS: ASPIRIN 81 MG TAB.CHEW PO SCH (08:20)
[2020-12-17] MEDS: ASCORBIC ACID 500 MG TABLET PO SCH (08:20)
[2020-12-17] MEDS: POTASSIUM CHLORIDE 10 MEQ TAB.PRT.SR PO SCH (08:21)
[2020-12-17] MEDS: DOCUSATE SODIUM 100 MG CAPSULE PO SCH (08:21)
[2020-12-17] MEDS: FUROSEMIDE 20 MG TABLET PO SCH (08:21)
[2020-12-17] MEDS: MEMANTINE HCL 5 MG TABLET PO SCH (08:21)
[2020-12-17] MEDS: QUETIAPINE FUMARATE 25 MG TABLET PO SCH ×2 (08:21→13:47)
[2020-12-17] MEDS: FERROUS SULFATE 325 MG TABEC PO SCH (08:21)
[2020-12-17] MEDS: ENSURE ENLIVE (VAN) 240 ML LIQUID PO SCH (08:22)
[2020-12-17] MEDS: TIMOLOL MALEATE 0.5% OPHT DROP 5 ML BOTTLE EACHEYE SCH (08:24)
[2020-12-17] MEDS ORDERED: GUAIFENESIN/DEXTROMETHORPHAN 5 ML UDC PO PRN (08:30)
[2020-12-17] MEDS: Z GUARD REMEDY PASTE 57 GM TUBE TOP SCH (09:24)
[2020-12-17] MEDS: CLOTRIMAZOLE 1% CREAM 30 GM TUBE TOP SCH (09:25)
[2020-12-17] MEDS: MINERAL OIL/PETROLATUM,WHITE 57 GM TUBE TOP SCH (09:25)
[2020-12-17] MEDS: FLUTICASONE PROP NASAL SPRAY 16 GM BOTTLE NS SCH (09:26)
[2020-12-17 09:31] VITALS: BP 119/57
[2020-12-17] MEDS: CARVEDILOL 3.125 MG TABLET PO SCH (09:31)
== END 2020-12-17 14:30 | disposition home health service (06) | DRG 885 ==
LOC: ER 21:03 → UNDOADMIN 12-02 01:28 → GPS 12-02 01:28 → GPSOV3 12-13 13:36
PROVIDERS: ADMIT Psychiatry & Neurology Psychiatry; ATTEND Internal Medicine
DX: F29 Unspecified psychosis not due to a substance or known physiological condition (principal); N17.0 Acute kidney failure with tubular necrosis; I50.32 Chronic diastolic (congestive) heart failure; D68.69 Other thrombophilia; E44.0 Moderate protein-calorie malnutrition; F23 Brief psychotic disorder; E03.9 Hypothyroidism, unspecified; Z79.890 Hormone replacement therapy; E78.5 Hyperlipidemia, unspecified; E11.9 Type 2 diabetes mellitus without complications; I25.5 Ischemic cardiomyopathy; H40.9 Unspecified glaucoma; I11.0 Hypertensive heart disease with heart failure; I25.10 Atherosclerotic heart disease of native coronary artery without angina pectoris; Z86.73 Personal history of transient ischemic attack (TIA), and cerebral infarction without residual deficits; Z95.1 Presence of aortocoronary bypass graft; G30.9 Alzheimer's disease, unspecified; F02.80 Dementia in other diseases classified elsewhere, unspecified severity, without behavioral disturbance, psychotic disturbance, mood disturbance, and anxiety; G47.33 Obstructive sleep apnea (adult) (pediatric); Z74.09 Other reduced mobility; Z68.36 Body mass index [BMI] 36.0-36.9, adult; E61.1 Iron deficiency; Z20.822 Contact with and (suspected) exposure to COVID-19
CPT/HCPCS: 36415; 70450; 71045; 83735; 84100; 84443; 85025; 93005; 93307; A4663; A9150; C1758; G0480; J1630; J1644; J2060; J2358; J3490; J3535